=== PATIENT | male | born 1975 | race Caucasian/White ===

== ENCOUNTER 2019-08-26 13:16 | Emergency (ER) | payer MEDICAID ==
[~2019-08-26] VITALS: Ht 172.7 cm; Wt 97.5 kg
[2019-08-26 13:46] VITALS: BP 120/77; Ht 172.7 cm; Wt 97.5 kg
== END 2019-08-26 14:32 | disposition home or self-care (01) ==
LOC: ED 13:16
DX: J06.9 Acute upper respiratory infection, unspecified (principal); H10.9 Unspecified conjunctivitis